=== PATIENT | female | born 1965 | race Caucasian/White ===

== ENCOUNTER 2017-10-22 15:15 | Emergency (ER) | payer BC ==
[2017-10-22 15:28] VITALS: BP 132/81; PULSE 85; TEMP 97.9; BMI 44.2
--- NOTE | 2017-10-22 16:06 | PDOC ---
History of Present Illness <Maryann Chambers - Last Filed: 10/22/17 18:39> - General History Source: Patient Exam Limitations: No Limitations - History of Present Illness Initial Comments: 10/22/17 16:35 The patient is a 52 year old female, with a significant past medical history of cholecystectomy, who presents to the emergency department with, right ankle swelling and pain s/p slip and fall this morning approx. 10 hours ago. The patient states she was getting ready to leave for work this morning at 6:30 am when she slipped on ice, twisted her right ankle and fell onto the ground. She denies head injury or loss of consciousness. The patient reports her assisted her back into the house and she elevated her right ankle and iced the right ankle up until arrival. She denies taking any medications for the right ankle pain and states the pain is rated 7-8/10. The patient also states she has stiffness/ tightness from the right knee down to the right ankle. She denies any numbness, weakness, or tingling. She denies any head, neck or back pain. She denies recent fevers, chills, headache or dizziness. She denies recent nausea, vomit, diarrhea or constipation. She denies recent chest pain or shortness of breath. Allergies: Penicillins <Fox Boucher - Last Filed: 10/22/17 18:42> - General Chief Complaint: Injury Stated Complaint: RIGHT ANKLE PAIN Time Seen by Provider: 10/22/17 15:55 Past History - Past Medical History Asthma: Yes COPD: No - Suicide/Smoking/Psychosocial Hx Smoking History: Never smoked Have you smoked in the past 12 months: No Number of Cigarettes Smoked Daily: 0 Hx Alcohol Use: No Drug/Substance Use Hx: No Substance Use Type: None <Maryann Chambers - Last Filed: 10/22/17 18:39> <Fox Boucher - Last Filed: 10/22/17 18:42> - Past Medical History Allergies/Adverse Reactions: Allergies Allergy/AdvReac Type Severity Reaction Status Date / Time Penicillins Allergy Unknown Verified 10/22/17 15:17 Home Medications: Ambulatory Orders Albuterol Sulfate Inhaler - [Ventolin HFA Inhaler -] 1 - 2 inh PO Q4H #1 inhaler 07/15/14 Doxycycline Hyclate [Vibramycin] 100 mg PO BID 07/19/15 Ondansetron [Zofran Odt -] 4 mg SL BID PRN #10 od.tablet 07/20/15 Tramadol HCl 50 mg PO TID PRN #20 tablet 07/20/15 Acetaminophen W/ Codeine #3 [Tylenol # 3 -] 1 tab PO BID #10 tablet MDD 2 Review of Systems - Review of Systems Comments:: 10/22/17 16:36 GENERAL/CONSTITUTIONAL: No fever or chills. No weakness. HEAD, EYES, EARS, NOSE AND THROAT: No change in vision. No ear pain or discharge. No sore throat. CARDIOVASCULAR: No chest pain or shortness of breath. RESPIRATORY: No cough, wheezing, or hemoptysis. GASTROINTESTINAL: No nausea, vomiting, diarrhea or constipation. GENITOURINARY: No dysuria, frequency, or change in urination. MUSCULOSKELETAL: (+) Right ankle pain and swelling. No neck or back pain. SKIN: No rash NEUROLOGIC: No headache, vertigo, loss of consciousness, or change in strength/ sensation. ENDOCRINE: No increased thirst. No abnormal weight change. HEMATOLOGIC/LYMPHATIC: No anemia, easy bleeding, or history of blood clots. ALLERGIC/IMMUNOLOGIC: No hives or skin allergy. <Fox Boucher - Last Filed: 10/22/17 18:42> *Physical Exam - Vital Signs Last Vital Signs Temp Pulse Resp BP Pulse Ox 97.9 F 85 15 132/81 100 10/22/17 15:16 10/22/17 15:16 10/22/17 15:16 10/22/17 15:16 10/22/17 15:16 <Maryann Chambers - Last Filed: 10/22/17 18:39> - Vital Signs Last Vital Signs Temp Pulse Resp BP Pulse Ox 97.9 F 85 15 132/81 100 10/22/17 15:16 10/22/17 15:16 10/22/17 15:16 10/22/17 15:16 10/22/17 15:16 - Physical Exam Comments: 10/22/17 17:34 GENERAL: Awake, alert, and fully oriented, in no acute distress HEAD: No signs of trauma EYES: PERRLA, EOMI, sclera anicteric, conjunctiva clear ENT: Auricles normal inspection, hearing grossly normal, nares patent, oropharynx clear without exudates. Moist mucosa NECK: Normal ROM, supple, no lymphadenopathy, JVD, or masses EXTREMITIES: (+) Right lateral malleolus swelling and tenderness. 2+ DP and TP pulses. Sensation intact. (+) Pain with movement of the right ankle. (+) Pain with palpation of the calcaneus. No proximal fibular tenderness. Capillary refill less than 2 seconds. NEUROLOGICAL: Cranial nerves II through XII grossly intact. Normal speech SKIN: Warm, Dry, normal turgor, no rashes or lesions noted. <Fox Boucher - Last Filed: 10/22/17 18:42> ED Treatment Course - RADIOLOGY Radiograph Interpretation: 10/22/17 18:42 EXAM#: TYPE/EXAM: RESULT: [id number] RAD/ANKLE FOOT-RIGHT* Right ankle and foot 6 views Clinical information: status post fall, lateral ankle pain There is no radiographic evidence of fracture. Possible slight widening of the ankle mortise is seen laterally - ? possible ligamentous injury Small inferior and posterior calcaneal bone spurs. Lateral ankle soft tissue swelling. Impression: As noted above. Reported By: Ramiro Borrego MD <Fox Boucher - Last Filed: 10/22/17 18:42> Medical Decision Making - Medical Decision Making 10/22/17 18:13 52-year-old female status post mechanical fall at 6:30 this morning, landing on her right foot. Patient denies head trauma, loss of consciousness. Patient has had right ankle pain since falling. Patient has been icing and elevating her foot all day. Patient presents emergency department because she continues to have right a lateral malleolus nkle and posterior ankle pain Differential diagnosis: Fracture, dislocation, ligamentous injury 10/22/17 18:34 Will do x ray Pt refused motrin Xray read officially by Dr Borrego Possible ligamentous injury Will place in air cast Pt will rest and elevate Follow up with ortho Clinical impression: ankle sprain, initial presentation <Maryann Chmabers - Last Filed: 10/22/17 18:39> *DC/Admit/Observation/Transfer - Discharge Dispostion Admit: No <Maryann Chambers - Last Filed: 10/22/17 18:39> - Attestations Scribe Attestion: 10/22/17 16:36 Documentation prepared by Fox Boucher, acting as medical assistant instructor for Maryann Chambers MD. <Fox Boucher - Last Filed: 10/22/17 18:42> Diagnosis at time of Disposition: Right ankle sprain Qualifiers: Encounter type: initial encounter Involved ligament of ankle: unspecified ligament Qualified Code(s): S93.401A - Sprain of unspecified ligament of right ankle, initial encounter - Discharge Dispostion Disposition: HOME Condition at time of disposition: Stable - Prescriptions Prescriptions: Acetaminophen W/ Codeine #3 [Tylenol # 3 -] 1 tab PO BID #10 tablet MDD 2 - Referrals Referrals: Marco Boyd [Primary Care Provider] - Greg Syed MD [Staff Physician] - - Patient Instructions Printed Discharge Instructions: DI for Ankle Sprain Additional Instructions: Ms Muhammad Thank you for coming in to the ER Today you were seen for ankle pain and the X-ray demonstrated no signs of fracture (broken bone), for that reason it is more likely a sprain based on your symptoms and the appearance and exam findings of your ankle. Please be sure to rest, ice and elevate it and to avoid bearing weight until feeling better. You may take the medications weve provided you as directed but please be sure to read the instructions provided by the pharmacist to make sure you take the medications correctly. You should not participate in any sports for at least 1 week or until you are feeling better. Follow up with your primary cares office, or the referral weve provided you within 24 hours to inform them of todays visit and to see if they would like to/ need to see you. If you develop any new or worsening symptoms, or any fevers that cant be controlled with Tylenol or Motrin go directly to the emergency room. - Post Discharge Activity Forms/Work/School Notes: Back to Work
[2017-10-22] MEDS ORDERED: IBUPROFEN 600 MG TABLET (FP) PO ONE ×2 (16:24→16:32)
== END 2017-10-22 19:07 | disposition home or self-care (01) ==
LOC: FER 15:15
PROC: 2W3QX1Z Immobilization of Right Lower Leg using Splint (ICD-10-PCS; principal; 2017-10-22)
DX: S93.401A Sprain of unspecified ligament of right ankle, initial encounter (principal); W18.39XA Other fall on same level, initial encounter; Y93.89 Activity, other specified; Y92.9 Unspecified place or not applicable; J45.909 Unspecified asthma, uncomplicated
CPT/HCPCS: 73610-TC-RT-FY; 73630-TC-RT-FY; 99281-25